=== PATIENT | female | born 1955 | race Two or more races ===

== ENCOUNTER 2016-12-31 23:06 | Inpatient (IN) | payer MEDICARE, OTHER ==
[~2016-12-31] VITALS: Ht 157.5 cm; Wt 47.6 kg
--- NOTE | 2016-12-31 23:09 | NUR ---
pt biba fr [facility], in hard c-collar for c/o posterior neck pain s/p fall today. per EMT report, pt sent by PCP for further eval for frequent falls x several days. bilateral nares w/ dry blood noted. per report, multiple bruising noted to pt lt eye, lfa from previous falls. resp even & unlabored, nad noted. On continuous monitoring.
--- NOTE | 2016-12-31 23:27 | NUR ---
pt sent to CT via [facility].
[2016-12-31] MEDS ORDERED: IV NS 0.9% 1,000 ML BAG IV ONE (23:30)
[2016-12-31 23:39] LABS: BASOPHILS % (AUTO) 0.5 % (0.0-2.0); EOSINOPHILS # (AUTO) 0.1 /CMM (0.0-0.7); EOSINOPHILS % (AUTO) 0.9 % (0.0-6.0); HEMATOCRIT 40 % (33-45); HEMOGLOBIN 13.1 g/dL (11.5-14.8); LYMPHOCYTES # (AUTO) 2.3 /CMM (0.8-4.8); LYMPHOCYTES % (AUTO) 29.2 % (20.0-44.0); MEAN CORPUSCULAR HEMOGLOBIN 30 PG (26.0-33.0); MEAN CORPUSCULAR HGB CONC 33 g/dl (31.0-36.0); MEAN CORPUSCULAR VOLUME 90 fL (82-100); MONOCYTES # (AUTO) 0.7 /CMM (0.1-1.30); MONOCYTES % (AUTO) 8.3 % (2.0-12.0); NEUTROPHILS # (AUTO) 4.9 /CMM (1.8-8.9); NEUTROPHILS % (AUTO) 61.1 % (43.0-81.0); PLATELET COUNT (AUTO) 310 /CMM (150-450); RED BLOOD CELL COUNT(AUTO) 4.41 MIL/uL (4.0-5.2)
--- NOTE | 2016-12-31 23:49 | NUR ---
pt back fr CT, placed on continuous monitoring.
[2016-12-31 23:51] LABS: SERUM AMMONIA 6 umol/L (11-32)
[2016-12-31 23:53] LABS: INR 0.95 (0.87-1.13); PROTHROMBIN TIME 10.1 SECS (9.5-12.7)
--- NOTE | 2016-12-31 23:55 | NUR ---
demetrio provided. Urine obtained & sent to lab.
[2016-12-31 23:56] LABS: ALANINE AMINOTRANSFERASE 23 U/L (12-78); ALBUMIN 3.6 g/dL (3.4-5.0); ALKALINE PHOSPHATASE 101 U/L (46-116); ASPARTATE AMINOTRANSFERASE 16 U/L (15-37); BILIRUBIN,DIRECT 0.1 mg/dL (0.0-0.2); BILIRUBIN,TOTAL 0.6 mg/dL (0.2-1.0); CALCIUM, SERUM 9.5 mg/dL (8.5-10.1); CARBON DIOXIDE 32 mmol/L (21-32); CHLORIDE 105 mmol/L (98-107); CREATININE 0.8 mg/dL (0.6-1.3); GLUCOSE 90 mg/dL (74-106); POTASSIUM 3.7 mmol/L (3.5-5.1); SODIUM SERUM 144 mmol/L (136-145); TOTAL PROTEIN, SERUM 7.4 g/dL (6.4-8.2); UREA NITROGEN, BLOOD 19 mg/dL (7-18)
[2016-12-31 23:58] LABS: TROPONIN I < 0.017 ng/mL (0.00-0.056)
[2017-01-01 00:03] LABS: THYROID STIMULATING HORMONE 3.308 uIU/mL (0.358-3.74)
--- NOTE | 2017-01-01 00:13 | NUR ---
Report given to JANKI Lockhart for VICENTE, pt transfer to [facility] rm [id number].
[2017-01-01 00:14] LABS: APPEARANCE,URINE CLEAR (CLEAR); BILIRUBIN,URINE NEGATIVE (NEGATIVE); BLOOD, URINE NEGATIVE Ery/uL (NEGATIVE); COLOR,URINE YELLOW (YELLOW); KETONES,URINE NEGATIVE (NEGATIVE); LEUKOCYTE ESTERASE ,URINE NEGATIVE (NEGATIVE); NITRITE, URINE NEGATIVE (NEGATIVE); PROTEIN,URINE NEGATIVE (NEGATIVE); UGLUCOSE NEGATIVE (NEGATIVE); UROBILINOGEN,URINE 0.2 EU/dL (0.2)
[2017-01-01 00:30] VITALS: BP 139/84
[2017-01-01] MEDS ORDERED: MONT10TA22 PO (00:31)
[2017-01-01] MEDS ORDERED: LEVO75TA90 PO (00:31)
[2017-01-01] MEDS ORDERED: CLON0.1T PO (00:31)
[2017-01-01] MEDS ORDERED: AMLO5TAB2 PO (00:31)
[2017-01-01] MEDS ORDERED: POLY17PO3 PO (00:31)
[2017-01-01] MEDS ORDERED: LORA-258 PO (00:31)
[2017-01-01] MEDS ORDERED: CALC1TAB91 PO (00:31)
[2017-01-01] MEDS ORDERED: MELA3TAB42 PO (00:31)
[2017-01-01] MEDS ORDERED: [UNRECOGNIZED DRUG - CODE] PO (00:31)
[2017-01-01] MEDS ORDERED: DOCU100C22 PO (00:31)
[2017-01-01] MEDS ORDERED: ALEN70TA3 PO (00:31)
[2017-01-01] MEDS ORDERED: FLUV100T3 PO (00:31)
[2017-01-01] MEDS ORDERED: Z GUARD REMEDY 2 OZ OINT TP PRN (01:00)
[2017-01-01] MEDS ORDERED: TEMAZEPAM 15 MG CAPSULE PO PRN (01:00)
[2017-01-01] MEDS ORDERED: ONDANSETRON HCL/PF 4 MG/2 ML VIAL IVP PRN (01:00)
[2017-01-01] MEDS ORDERED: CLONIDINE HCL 0.1 MG TABLET PO PRN (01:00)
[2017-01-01] MEDS ORDERED: MAGNESIUM HYDROXIDE 30 ML UDC PO PRN (01:00)
[2017-01-01] MEDS ORDERED: ACETAMINOPHEN 325 MG TABLET PO PRN (01:00)
[2017-01-01] MEDS ORDERED: ENOXAPARIN SODIUM 40 MG/0.4 ML DISP.SYRIN SQ SCH (01:00)
[2017-01-01] MEDS ORDERED: MAG HYDROX/AL HYDROX/SIMETH 30 ML UDC PO PRN (01:00)
--- NOTE | 2017-01-01 01:16 | NUR ---
SPOKE TO Alen MOORE AT THIS TIME.
[2017-01-01] MEDS ORDERED: TEMAZEPAM 7.5 MG CAPSULE ONE (01:19)
[2017-01-01] MEDS: HYDROCODONE/APAP 5/325MG 1 EACH TABLET PO PRN (01:32)
[2017-01-01 04:00] VITALS: BP 126/73
[2017-01-01] MEDS ORDERED: ALENDRONATE 70 MG TABLET PO SCH (06:30)
[2017-01-01 07:34] LABS: THYROID STIMULATING HORMONE 2.823 uIU/mL (0.358-3.74)
--- NOTE | 2017-01-01 07:35 | NUR ---
RN NOTES RECEIVED PT IN BED, AWAKE ALERT ORIENTED TO NAME. PT NOTED SCREAMING AND YELLING, WHEN ASKED PT VERBALIZED WANTING TO EAT BREAKFAST. BREAKFAST TRAY PROVIDED. PT STILL NOTED SCREAMING AND YELLING. PT IS VERY AGITATED. TRIES TO GET OOB UNASSISTED, BED ALARM ON. REDIRECTED PT,UNABLE TO FOLLOW SAFETY DIRECTIONS AT THIS TIME. MONITORED CLOSELY, SAFETY MAINTAINED, CALL LIGHT WITHIN REACH.
[2017-01-01 07:44] LABS: PHOSPHORUS 3.8 mg/dL (2.5-4.9)
[2017-01-01 08:00] VITALS: BP 125/77
[2017-01-01] MEDS: MORPHINE SULFATE INJ 2 MG/ML DISP.SYRIN IV PRN ×2 (08:16→15:00)
[2017-01-01] MEDS: CALCIUM CARB 600MG /VIT D 1 EACH TABLET PO SCH (08:26)
[2017-01-01] MEDS: DOCUSATE SODIUM 100 MG CAPSULE PO SCH ×2 (08:26→16:27)
[2017-01-01] MEDS: AMLODIPINE BESYLATE 5 MG TABLET PO SCH (08:27)
[2017-01-01] MEDS: LEVOTHYROXINE SODIUM 75 MCG TABLET PO SCH (08:28)
[2017-01-01] MEDS: IV NS 0.9% 1,000 ML IV PRN ×2 (08:30→20:10)
--- NOTE | 2017-01-01 14:54 | NUR ---
TEXTED DR. HAYS FOR MRI APPROVAL.
[2017-01-01 16:00] VITALS: BP 155/75
--- NOTE | 2017-01-01 19:30 | NUR ---
MS RN INITIAL NOTE PT RECEIVED IN BED WITH BED ALARM ENABLED. A/O X1-2 WITH NOTED YELLING, RESTLESSNESS AND AGITATION UPON ASSESSMENT. 1:1 SITTER PROVIDED. PT HAS BILATERAL SOFT WRISTS RESTRAINTS WITH CAP REFILL AND CIRCULATION ASSESSED. EXPLAINED SAFETY MEASURES TO NOT GET OUT OF BED UNASSISTED AND INSTRUCTED ON USE OF CALL LIGHT. IV RAC PULLED OUT. NEW IV RFA #20 PATENT, CLEAN AND WITH FLUIDS RUNNING. BED IN LOWEST POSITION AND LOCKED IN PLACE. WILL CONTINUE TO MONITOR.
[2017-01-01 20:00] VITALS: BP 140/79
[2017-01-01] MEDS: MONTELUKAST SODIUM (10MG) 10 MG TABLET PO SCH (21:28)
[2017-01-01] MEDS: FLUVOXAMINE MALEATE 50 MG TABLET PO SCH (21:29)
[2017-01-02 04:00] VITALS: BP 113/65
[2017-01-02 04:25] VITALS: BP 114/59
[2017-01-02 06:40] LABS: BASOPHILS % (AUTO) 0.5 % (0.0-2.0); EOSINOPHILS # (AUTO) 0.1 /CMM (0.0-0.7); EOSINOPHILS % (AUTO) 2.2 % (0.0-6.0); HEMATOCRIT 34 % (33-45); HEMOGLOBIN 11.5 g/dL (11.5-14.8); LYMPHOCYTES # (AUTO) 2.1 /CMM (0.8-4.8); LYMPHOCYTES % (AUTO) 32.8 % (20.0-44.0); MEAN CORPUSCULAR HEMOGLOBIN 30 PG (26.0-33.0); MEAN CORPUSCULAR HGB CONC 34 g/dl (31.0-36.0); MEAN CORPUSCULAR VOLUME 90 fL (82-100); MONOCYTES # (AUTO) 0.6 /CMM (0.1-1.30); NEUTROPHILS # (AUTO) 3.5 /CMM (1.8-8.9); NEUTROPHILS % (AUTO) 54.5 % (43.0-81.0); PLATELET COUNT (AUTO) 269 /CMM (150-450); RDW COEFFICIENT OF VARIATION 14.2 (11.5-15.0); WHITE BLOOD COUNT (AUTO) 6.5 K/uL (4.3-11.0)
[2017-01-02 06:57] LABS: CALCIUM, SERUM 8.7 mg/dL (8.5-10.1); CREATININE 0.7 mg/dL (0.6-1.3); MAGNESIUM 1.9 mg/dL (1.8-2.4); PHOSPHORUS 3.6 mg/dL (2.5-4.9)
--- NOTE | 2017-01-02 07:02 | NUR ---
MS RN CLOSING NOTE PT REMAINED STABLE DURING SHIFT WITH SITTER AT BEDSIDE. NO ACUTE DISTRESS NOTED. IV SITE INTACT. KEPT CLEAN AND DRY. CALL LIGHT WITHIN REACH AT ALL TIMES. WILL ENDORSE TO NEXT SHIFT FOR CONTINUITY OF CARE.
--- NOTE | 2017-01-02 07:09 | NUR ---
RN INITIAL NOTE RECEIVED REPORT FROM CHEMO TA SHIFT. PT A/OX2. PT MS. IV RFA #20 NS @ 75 ML/HR. PT ON RA NO C/O SOB. WILL CONTINUE TO MONITOR CLOSELY. ALL SAFETY MEASURES IN PLACE. FALL PREVENTION MONITORING CLOSELY.
[2017-01-02 08:00] VITALS: BP 115/57
[2017-01-02] MEDS: CALCIUM CARB 600MG /VIT D 1 EACH TABLET PO SCH (08:04)
[2017-01-02] MEDS: DOCUSATE SODIUM 100 MG CAPSULE PO SCH ×2 (08:04→16:08)
[2017-01-02] MEDS: AMLODIPINE BESYLATE 5 MG TABLET PO SCH (08:05)
[2017-01-02] MEDS: LEVOTHYROXINE SODIUM 75 MCG TABLET PO SCH (08:05)
--- NOTE | 2017-01-02 09:52 | NUR ---
RN NOTE ACCOMPANIED PT TO MRI. UNABLE TO DO TEST. PT CONTINUALLY YELLED FOR HELP AND LIFTED HER HEAD AND LEGS THROUGH OUT TESTING. WILL CALL [facility] TO NOTIFY.
[2017-01-02] MEDS: IV NS 0.9% 1,000 ML IV PRN (10:00)
--- NOTE | 2017-01-02 10:09 | NUR ---
RN NOTE LM FOR [facility] REGARDING MRI ON PT CELL # [phone]. AWAITING CALL BACK.
--- NOTE | 2017-01-02 10:54 | NUR ---
RN NOTE [facility] CALLED BACK. EXPLAINED PT REFUSED MRI AND CT . ORDERED EEK COLLAR PT NEEDS TO WEAR COLLAR FOR 6 WKS. MAKE F/U APPOINTMENT IN 2WKS WITH [facility].
--- NOTE | 2017-01-02 11:15 | NUR ---
RN NOTE SWALLOW EVAL DONE DUE TO PT COUGHING WITH BREAKFAST. DELORES FROM SPEECH SEEN PT AND REQUESTED PUREE DIET WITH NECTAR DUE TO COUGH WHILE EATING.
[2017-01-02 16:00] VITALS: BP_SYST 115; BP_SYST 127; BP_DIAS 57; BP_DIAS 64
--- NOTE | 2017-01-02 19:48 | NUR ---
RN CLOSING NOTE RECEIVED REPORT GIVEN TO LEÓN. PT A/OX2. PT MS. IV RFA #20 NS @ 75 ML/HR. PT ON RA NO C/O SOB. PT HAS SITTER @ BEDSIDE. ALL SAFETY MEASURES IN PLACE. FALL PREVENTION MONITORING CLOSELY.
--- NOTE | 2017-01-02 20:00 | NUR ---
MS1/RN RECEIVE PATIENT AWAKE, ALERT, ORIENTED TO NAME ONLY, RESTLESS, ASKING FOR A SLEEPING MED, I TOLD PATIENT I WILL GIVE THE SLEEPING PILL AT 9 O'CLOCK. PATIENT HAS NO DISTRESS NOTED, NO C/O PAIN, SITTER AT BEDSIDE. WILL MONITOR.
[2017-01-02] MEDS: TEMAZEPAM 7.5 MG CAPSULE PO PRN (21:11)
[2017-01-02] MEDS: MONTELUKAST SODIUM (10MG) 10 MG TABLET PO SCH (21:11)
[2017-01-02] MEDS: FLUVOXAMINE MALEATE 50 MG TABLET PO SCH (21:12)
[2017-01-02 22:49] VITALS: BP 116/64
--- NOTE | 2017-01-02 23:04 | NUR ---
MS1/RN AWAKE, CALM AND COMFORTABLE, NO CHANGE IN CONDITION. ENDORSED TO NEXT RN FOR CONTINUITY OF CARE.
--- NOTE | 2017-01-02 23:29 | NUR ---
RN NOTES RECEIVED PATIENT RESTING IN BED WITH SITTER AT BEDSIDE. A/O X1-2. NO SIGNS OF DISTRESS OR DISCOMFORT. BREATHING EVEN AND UNLABORED. IV ACCESS IN RFA WITH NS INFUSING, PATENT AND INTACT, NO SIGNS OF REDNESS OR INFILTRATION. BED IN LOW LOCKED POSITION WITH SIDE RAILS X2. CALL LIGHT WITHIN REACH. WILL CONTINUE TO MONITOR.
[2017-01-03] MEDS: IV NS 0.9% 1,000 ML IV PRN (02:24)
[2017-01-03] MEDS: MORPHINE SULFATE INJ 2 MG/ML DISP.SYRIN IV PRN (02:25)
--- NOTE | 2017-01-03 02:25 | NUR ---
RN NOTES ADMINISTERED MORPHINE 4MG ORDERED FOR GENERALIZED PAIN. VSS. WILL CONTINUE TO MONITOR.
--- NOTE | 2017-01-03 06:46 | NUR ---
RN NOTES PATIENT RESTING IN BED WITH SITTER AT BEDSIDE. A/O X1-2. NO SIGNS OF DISTRESS OR DISCOMFORT. BREATHING EVEN AND UNLABORED. IV ACCESS IN RFA WITH NS INFUSING, PATENT AND INTACT, NO SIGNS OF REDNESS OR INFILTRATION. ALL NEEDS MET. NO SIGNIFICANT CHANGES THROUGH THE NIGHT. BED IN LOW LOCKED POSITION WITH SIDE RAILS X2. CALL LIGHT WITHIN REACH. WILL ENDORSE TO AM SHIFT FOR VICENTE.
--- NOTE | 2017-01-03 07:49 | NUR ---
RN INITIAL NOTES PT IS IN BED, SITTER AT BEDSIDE, NO COMPLAINS OF PAIN. A/O X2, ROOM AIR SATURATING WELL. NO RESPIRATORY DISTRESS NOTED. ON PUREE DIET WITH NECTAR LIQUID. RFA#20 NS@ 75 M/HR, FLUSHED AND PATENT. SIDE RAILS UP , BED LOCKED AND IN LOWEST POSITION. WILL CONTINUE TO MONITOR.
[2017-01-03 08:00] VITALS: BP 131/71
[2017-01-03] MEDS: DOCUSATE SODIUM 100 MG CAPSULE PO SCH ×2 (08:09→16:45)
[2017-01-03] MEDS: CALCIUM CARB 600MG /VIT D 1 EACH TABLET PO SCH (08:09)
[2017-01-03] MEDS: LEVOTHYROXINE SODIUM 75 MCG TABLET PO SCH (08:09)
[2017-01-03] MEDS: AMLODIPINE BESYLATE 5 MG TABLET PO SCH (08:10)
[2017-01-03] MEDS: HYDROCODONE/APAP 5/325MG 1 EACH TABLET PO PRN ×3 (08:16→21:12)
[2017-01-03 16:00] VITALS: BP 127/63
--- NOTE | 2017-01-03 18:46 | NUR ---
RN CLOSING NOTES, NO SIGNIFICANT CHANGES DURING AM SHIFT. ON ROOM AIR, NO RESPIRATORY DISTRESS NOTED. KEPT PT CLEAN AND DRY, THROUGHOUT THE SHIFT. NECK BRACE IS ON, CT SCAN OF NECK SPINE RESULTED, MADE ROUNDS WITH BRYAN AND PT AGREES TO HAVE MRI DONE. TOLERATED PUREE DIET, CONSUMED 100% OF DINNER, NO ASPIRATION NOTED. SWALLOW EVAL TOMORROW. RFA IS PATENT, NO S/SX OF INFECTION/INFILTRATION NOTED. ALL MEDS GIVEN, AND TOLERATED IT WELL. ALL SAFETY MEASURES MAINTAINED, CALL LIGHT WITHIN REACH, WILL ENDORSE TO PM NURSE FOR CONTINUATION OF CARE.
--- NOTE | 2017-01-03 19:15 | NUR ---
RN NOTES PT SCREAMED AND YELLED DURING ROUNDS DOESN'T WANT TO BE ALONE ON HER ROOM. RE ORIENTATION RENDERED. PT IS ALERT ORIENTED X 2 EASILY FORGETS. NO ACUTE RESP DISTRESS SATING 97% IN RA. IV SIT DEMETRICE RFA G 20 INTACT AND PATENT. BED LOCKED AND SECURED BED ALARM KEPT ON. MONITORED CLOSELY.
[2017-01-03 20:00] VITALS: BP 141/63
[2017-01-03] MEDS: TEMAZEPAM 7.5 MG CAPSULE PO PRN (21:12)
[2017-01-03] MEDS: MONTELUKAST SODIUM (10MG) 10 MG TABLET PO SCH (21:12)
[2017-01-03] MEDS: FLUVOXAMINE MALEATE 50 MG TABLET PO SCH (21:13)
[2017-01-04 04:00] VITALS: BP 120/66
[2017-01-04 06:25] LABS: BASOPHILS % (AUTO) 0.7 % (0.0-2.0); EOSINOPHILS # (AUTO) 0.3 /CMM (0.0-0.7); EOSINOPHILS % (AUTO) 4.3 % (0.0-6.0); HEMATOCRIT 36 % (33-45); LYMPHOCYTES # (AUTO) 2.1 /CMM (0.8-4.8); MEAN CORPUSCULAR HEMOGLOBIN 30 PG (26.0-33.0); MEAN CORPUSCULAR HGB CONC 33 g/dl (31.0-36.0); MEAN CORPUSCULAR VOLUME 90 fL (82-100); MONOCYTES # (AUTO) 0.5 /CMM (0.1-1.30); MONOCYTES % (AUTO) 8.9 % (2.0-12.0); NEUTROPHILS # (AUTO) 2.9 /CMM (1.8-8.9); NEUTROPHILS % (AUTO) 50.1 % (43.0-81.0); PLATELET COUNT (AUTO) 260 /CMM (150-450); RDW COEFFICIENT OF VARIATION 14.1 (11.5-15.0); WHITE BLOOD COUNT (AUTO) 5.9 K/uL (4.3-11.0)
[2017-01-04] MEDS: IV NS 0.9% 1,000 ML IV PRN ×2 (06:47→17:41)
[2017-01-04 06:52] LABS: CALCIUM, SERUM 8.7 mg/dL (8.5-10.1); CREATININE 0.7 mg/dL (0.6-1.3); MAGNESIUM 1.8 mg/dL (1.8-2.4); PHOSPHORUS 3.6 mg/dL (2.5-4.9)
[2017-01-04 06:57] LABS: POTASSIUM 4.1 mmol/L (3.5-5.1)
--- NOTE | 2017-01-04 07:15 | NUR ---
MS RN INITIAL NOTES REPORT RECEIVED AT THE BEDSIDE. PATIENT IS SLEEPING AT THIS TIME. NO SOB OR DISTRESS NOTED. PATIENT DOES NOT APPEAR TO BE IN PAIN, NO FACIAL GRIMACE NOTED. BED IN A LOW POSITION, CALL LIGHT WITHIN PATIENT REACH, SITTER IS AT THE BEDSIDE. WILL CONTINUE TO MONITOR.
--- NOTE | 2017-01-04 07:18 | NUR ---
RN NOTES PT REMAINED IN STABLE CONDITION, QUIET WHEN SOMEONE SITTING BESIDE HER. NO ACUTE RESP DISTRESS. AFEBRILE. VS STABLE. ALL DUE MEDICINE GIVEN ORDERED TOLERATED WELL WITHOUT N.V.D.
[2017-01-04 08:00] VITALS: BP 134/72
[2017-01-04] MEDS: CALCIUM CARB 600MG /VIT D 1 EACH TABLET PO SCH (08:11)
[2017-01-04] MEDS: LEVOTHYROXINE SODIUM 75 MCG TABLET PO SCH (08:11)
[2017-01-04] MEDS: AMLODIPINE BESYLATE 5 MG TABLET PO SCH (08:11)
[2017-01-04] MEDS: DOCUSATE SODIUM 100 MG CAPSULE PO SCH ×2 (08:11→17:36)
[2017-01-04] MEDS ORDERED: QUETIAPINE FUMARATE 25 MG TABLET PO ONE (15:00)
--- NOTE | 2017-01-04 18:47 | NUR ---
MS RN CLOSING NOTES NO SIGNIFICANT CHANGES IN PATIENT CONDITION THROUGHOUT THE SHIFT. NO SOB OR DISTRESS NOTED AT THIS TIME. PATIENT IS SLEEPING AND DOES NOT APPEAR TO BE IN PAIN, NO FACIAL GRIMACE NOTED. BED IN A LOW POSITION, CALL LIGHT WITHIN PATIENT REACH, SITTER IS AT THE BEDSIDE. WILL ENDORSE FOR VICENTE.
[2017-01-04] MEDS: HYDROCODONE/APAP 5/325MG 1 EACH TABLET PO PRN (19:14)
[2017-01-04 20:00] VITALS: BP 142/81
--- NOTE | 2017-01-04 20:00 | NUR ---
RN NOTES RECEIVED PATIENT IN BED WITH NO RESPIRATORY DISTRESS OR SHORTNESS OF BREATH. BREATHING EVEN AND UNLABORED. ALERT AND RESPONSIVE WITH CONFUSION. INCONTINENT OF BOWEL AND BLADDER FUNCTION. ABDOMEN SOFT AND NON TENDER. VITAL SIGNS WNL. WILL CONTINUR TO MONITOR.
[2017-01-04] MEDS: FLUVOXAMINE MALEATE 50 MG TABLET PO SCH (21:47)
[2017-01-04] MEDS: MONTELUKAST SODIUM (10MG) 10 MG TABLET PO SCH (21:47)
[2017-01-04] MEDS ORDERED: QUETIAPINE FUMARATE 25 MG TABLET PO SCH (22:00)
[2017-01-05 04:00] VITALS: BP 129/62
[2017-01-05] MEDS: IV NS 0.9% 1,000 ML IV PRN (06:33)
--- NOTE | 2017-01-05 07:24 | NUR ---
RN CLOSING NOTES RESTING COMFORTABLY IN BED. IN NO DISTRESS, BREATHING EVEN AND UNLABORED. NO COMPLAINT OF PAIN OR DISCOMFORT. NO SIGNIFICANT CHANGE OF CONDITION. WILL ENDORSE TO AM SHIFT FOR CONTINUITY OF CARE
--- NOTE | 2017-01-05 07:35 | NUR ---
RN NOTES RECEIVED PT FROM SUPPLY PERSON IN STABLE CONDITION. SLEEPING IN BED WITH SITTER AT BEDSIDE. RFA IV SITE GAUGE 20 DRESSING DRY AND INTACT IVF RUNNING AT 75ML/HR. BED LOCKED AND IN LOWEST POSITION, CALL LIGHT WITHIN REACH, SIDE RAILS UPX3. WILL CONT TO MONITOR.
[2017-01-05 08:00] VITALS: BP 140/71
[2017-01-05] MEDS: CALCIUM CARB 600MG /VIT D 1 EACH TABLET PO SCH (08:43)
[2017-01-05] MEDS: DOCUSATE SODIUM 100 MG CAPSULE PO SCH ×2 (08:43→16:28)
[2017-01-05 08:45] VITALS: BP 140/71
[2017-01-05] MEDS: AMLODIPINE BESYLATE 5 MG TABLET PO SCH (08:45)
[2017-01-05] MEDS: LEVOTHYROXINE SODIUM 75 MCG TABLET PO SCH (08:45)
[2017-01-05] MEDS ORDERED: QUETIAPINE FUMARATE 25 MG TABLET PO SCH (09:00)
[2017-01-05] MEDS ORDERED: QUET25TA PO ×2 (13:56)
--- NOTE | 2017-01-05 15:10 | NUR ---
RN NOTES D/C ORDER PER [employer] P[employer]ER CELIA, SPOKE WITH [facility] NEED CONSULTANT. PT WILL BE GOING TO [facility] AT 1730.
--- NOTE | 2017-01-05 16:00 | NUR ---
RN NOTES PT HAD 100F TEMP AFTER TAKING TWICE. NOTIFIED [employer] [facility] CONSULTANT CELIA GOT AN ORDER FOR TYLENOL. PER CELIA PT STILL OK TO BE DISCHARGED.
[2017-01-05] MEDS ORDERED: ACETAMINOPHEN 325 MG TABLET PO PRN (16:30)
--- NOTE | 2017-01-05 16:44 | NUR ---
RN NOTES REPORT GIVEN TO JANKI DINERO FROM [facility].
== END 2017-01-05 18:05 | DRG 91 ==
LOC: ER 23:16 → MEDSG1 01-01 00:36
PROVIDERS: ADMIT Nurse Practitioner Acute Care; ATTEND Nurse Practitioner Acute Care
DX: G90.1 Familial dysautonomia [Riley-Day] (principal); G92 Toxic encephalopathy; M84.48XA Pathological fracture, other site, initial encounter for fracture; G90.8 Other disorders of autonomic nervous system; M48.02 Spinal stenosis, cervical region; F20.9 Schizophrenia, unspecified; W18.30XA Fall on same level, unspecified, initial encounter; Z98.1 Arthrodesis status; Z91.81 History of falling; Z87.891 Personal history of nicotine dependence; S00.03XA Contusion of scalp, initial encounter; R29.6 Repeated falls; M81.0 Age-related osteoporosis without current pathological fracture; M46.90 Unspecified inflammatory spondylopathy, site unspecified; J45.909 Unspecified asthma, uncomplicated; I10 Essential (primary) hypertension; F31.9 Bipolar disorder, unspecified; E03.9 Hypothyroidism, unspecified; K21.9 Gastro-esophageal reflux disease without esophagitis; F41.9 Anxiety disorder, unspecified; Z98.2 Presence of cerebrospinal fluid drainage device; S00.83XA Contusion of other part of head, initial encounter; Y92.129 Unspecified place in nursing home as the place of occurrence of the external cause
CPT/HCPCS: 36415; 70450-TC; 71010-TC; 72125-TC; 72128-TC; 80048-TC; 80061-TC; 80076-TC; 81000-TC; 82140-TC; 83735-TC; 84100-TC; 84443-TC; 84484-TC; 85025-TC; 85730-TC; 87081-TC; 87086-TC; 92526; 92611-TC; 97116-TC; 97530-TC; A4606; J2270; J7030; Z7610